=== PATIENT | male | born 1970 | race Caucasian/White ===

== ENCOUNTER → 2016-09-19 | Outpatient (REF) | payer MEDICARE ==
[~2016-09-19] MED LIST: AMBI12.52 PO; CYCL10TA3 PO; DICL100T PO; DICL13PA TOP; NORCO; OXYC5TAB2 PO
== END ==
LOC: M LAB REF 13:20
PROVIDERS: ATTEND Physician Assistant
DX: Z11.3 Encounter for screening for infections with a predominantly sexual mode of transmission (principal); Z20.2 Contact with and (suspected) exposure to infections with a predominantly sexual mode of transmission

== ENCOUNTER → 2016-10-31 | Outpatient (CLI) | payer MEDICARE ==
--- NOTE | 2016-11-01 07:28 | REP ---
RIGHT RIB SERIES: Four views of the right ribs are performed and demonstrate no evidence of acute fracture or bone lesion. An accompanying view of the chest demonstrates no evidence of acute infiltrate, pneumothorax or pleural effusion. The cardiomediastinal silhouette is unremarkable. IMPRESSION: No evidence of right rib fracture. Signed by Valerio Perkins MD 11/01/2016 01:53 P
--- NOTE | 2016-11-01 07:40 | REP ---
RIGHT THIRD DIGIT: Four views of the right third digit are performed and demonstrate no fracture, dislocation or intrinsic bone disease. IMPRESSION: No fracture or dislocation. Signed by Valerio Perkins MD 11/01/2016 01:54 P
== END ==
LOC: M WUC 10:20
PROVIDERS: ATTEND Physician Assistant
DX: S20.211A Contusion of right front wall of thorax, initial encounter (principal); S60.031A Contusion of right middle finger without damage to nail, initial encounter; W18.30XA Fall on same level, unspecified, initial encounter; Y92.009 Unspecified place in unspecified non-institutional (private) residence as the place of occurrence of the external cause

== ENCOUNTER 2016-11-09 10:13 | Emergency (ER) | payer MEDICARE ==
[~2016-11-09] VITALS: Ht 185.4 cm; Wt 79.8 kg
--- NOTE | 2016-11-09 12:42 | REP ---
Chest x-ray: Two views. History: Back injury and pain. Comparison study October 31, 2016. Findings: The patient is status post cervical fusion plating. The lungs are symmetrically aerated and clear. Heart size is normal. Pulmonary vasculature is not increased. No other significant bony abnormality is seen. Impression: No active disease. Signed by Ronald Mishra MD 11/09/2016 07:16 P
--- NOTE | 2016-11-09 12:45 | REP ---
T-spine series: Four views. History: Back injury pain. Findings: Thoracic vertebral body heights are preserved. No fracture or collapse is seen. Disc spaces are maintained. Pedicles and posterior elements appear intact on the frontal view. No paravertebral soft-tissue mass or swelling is seen. No bony destructive lesion seen. Impression: No thoracic spine abnormality. Signed by Ronald Mishra MD 11/09/2016 07:16 P
[2016-11-09 12:59] LABS: BASO % 0.5 % (0.0-1.0); EOS # 0.2 K/mm3 (0.0-0.50); EOS % 2.1 % (0.0-3.0); LARGE UNSTAINED CELL # 0.1 K/mm3 (0.0-0.4); LARGE UNSTAINED CELL % 1.3 % (0.0-4.0); LYMPH # 2.5 K/mm3 (1.5-4.5); LYMPH % 26.3 % (24.0-44.0); MEAN CORPUSCULAR HEMOGLOBIN 32.8 pg (27.0-33.0); MEAN CORPUSCULAR HGB CONC 33.7 g/dl (32.0-36.5); MEAN CORPUSCULAR VOLUME 97.3 fl (80.0-96.0); MONO # 0.3 K/mm3 (0.0-0.8); MONO % 3.5 % (0.0-5.0); NEUTROPHILS # 6.4 K/mm3 (1.8-7.7); NEUTROPHILS % 66.4 % (36.0-66.0); PLATELET COUNT, AUTOMATED 303 k/mm3 (150-450); RED CELL DISTRIBUTION WIDTH 11.6 % (11.5-14.5); WHITE BLOOD COUNT 9.6 K/mm3 (4.0-10.0)
[2016-11-09 13:21] LABS: ANION GAP 5 MEQ/L (8-16); BLOOD UREA NITROGEN 15 MG/DL (7-18); CALCIUM LEVEL 9.3 MG/DL (8.5-10.1); CARBON DIOXIDE LEVEL 31 MEQ/L (21-32); CHLORIDE LEVEL 106 MEQ/L (98-107); CREATININE FOR GFR 0.71 MG/DL (0.70-1.30); GLOMERULAR FILTRATION RATE > 60.0 (>60); GLUCOSE, FASTING 97 MG/DL (70-105); POTASSIUM SERUM 4.2 MEQ/L (3.5-5.1); SODIUM LEVEL 142 MEQ/L (136-145)
[2016-11-09] MEDS ORDERED: ISOVUE-370 76% 100ML VIAL (Q9967) As Ordered ONE (13:29)
[2016-11-09] MEDS ORDERED: KETOROLAC 30 MG/ML VIAL (J1885) IV ONE (14:15)
[2016-11-09 14:19] VITALS: BP 154/82
[2016-11-09] MEDS ORDERED: VALI5TAB PO (14:19)
[2016-11-09] MEDS ORDERED: NAPR500T PO (14:19)
--- NOTE | 2016-11-09 14:37 | REP ---
CT study of the abdomen and pelvis with IV but without oral contrast: History: Right upper quadrant and CVA pain. Dark urine. CT contrast dose: 100 mL of Isovue [address] findings: Preliminary digital energy technician radiograph shows an unremarkable bowel gas pattern. There are two 3 mm noncalcified pulmonary nodules in the left lower lobe. These are visible on image #2 and #8 of 41 of series 204 today's study. Also noted is an area of irregular fibrosis in the right lower lobe. No pleural effusion is seen. The liver and the spleen are normal in size homogeneous in texture. No adrenal lesion is seen. The pancreas shows no abnormality. Gallbladder is unremarkable. The kidneys enhance symmetrically and are morphologically intact. No hydronephrosis is seen. The left renal artery is duplicated. The urinary bladder is unremarkable. There is a dystrophic calcification in the prostate gland. Seminal vesicles are unremarkable and symmetric. A normal appendix is seen in the right lower quadrant. Small and large intestinal bowel loops are unremarkable. No abdominal wall defect is seen. No bony destructive lesion is appreciated. Laminectomy defect is visible at L4 on the left. Impression: 1. No urinary tract abnormality is seen. No stone or hydronephrosis noted. 2. Normal appendix seen. No acute abdominal or pelvic abnormality. Signed by Ronald Mishra MD 11/09/2016 07:17 P
== END 2016-11-09 14:48 | disposition home or self-care (01) ==
LOC: M ED 11:16
DX: S29.019D Strain of muscle and tendon of unspecified wall of thorax, subsequent encounter (principal); W17.89XD Other fall from one level to another, subsequent encounter; Y92.89 Other specified places as the place of occurrence of the external cause; R82.99 Other abnormal findings in urine; M54.9 Dorsalgia, unspecified; F17.200 Nicotine dependence, unspecified, uncomplicated
CPT/HCPCS: 36415; 71020; 72072; 74177; 80048; 81001; 85025; 87086; 96374; 99283; J1885; Q9967